=== PATIENT | female | born 1930 | race Caucasian/White ===

== ENCOUNTER 2017-11-08 05:12 | Emergency (ER) | payer MEDICARE, BC ==
[2013-05-19 16:12] VITALS: BMI 30.1
[~2017-11-08 05:12] MED LIST: ASPIRIN 81 MG E81 MG PO; CORDARONE200 MG PO; CRANBERRY PO; ESTRACE1 MG PO; FIBER-TABS625 MG PO; GLUCOSAMINE & C1 CAP PO; VITAMIN D5000 UNIT PO; XARELTO20 MG PO
== END 2017-11-08 06:41 | disposition home or self-care (01) ==
LOC: D.ER 05:12
DX: S49.92XA Unspecified injury of left shoulder and upper arm, initial encounter (principal); W19.XXXA Unspecified fall, initial encounter; Y93.89 Activity, other specified; Y92.121 Bathroom in nursing home as the place of occurrence of the external cause; S89.92XA Unspecified injury of left lower leg, initial encounter; Z86.73 Personal history of transient ischemic attack (TIA), and cerebral infarction without residual deficits

== ENCOUNTER 2018-09-17 09:50 | Emergency (ER) | payer MEDICARE, BC ==
[~2018-09-17] VITALS: Ht 162.6 cm; Wt 100.0 kg
[2018-09-17 09:56] VITALS: Ht 162.6 cm; Wt 100.0 kg
[2018-09-17 10:43] LABS: BASOPHILS 0.1 % (0-2); HEMATOCRIT 43.7 % (36.0-48.0); HEMOGLOBIN 14.7 g/dL (12-16); IMMATURE GRANULOCYTES 0.1 % (0-5); MCH 29.8 pg (26.0-34.0); MCHC 33.6 g/dL (31.0-37.0); MCV 88.6 fL (80.0-100.0); NEUTROPHILS 74.8 % (40-80); PLATELET COUNT 186 10x3/uL (130-400); RBC 4.93 10x6/uL (4.00-5.40); RDW 14.3 % (11.5-14.5); WBC 8.6 10x3/uL (4.8-10.8)
[2018-09-17 10:49] LABS: APTT 38.3 SECONDS (22.8-39.4); INR 2.18 (0.85-1.17); PROTIME 23.6 SECONDS (11.6-15.0)
[2018-09-17 10:55] LABS: ALBUMIN 3.2 g/dL (3.4-5.0); ANION GAP 12.8 mmol/L (8-16); BILIRUBIN - TOTAL 0.47 mg/dL (0.2-1.3); CALCIUM 8.4 mg/dL (8.5-10.1); CARBON DIOXIDE 28.6 mmol/L (21.0-32.0); CREATININE - SERUM 0.8 mg/dL (0.6-1.3); POTASSIUM - SERUM 4.4 mmol/L (3.5-5.1); PROTEIN - SERUM 6.7 g/dL (6.4-8.2)
[2018-09-17 11:44] LABS: APPEARANCE CLEAR (CLEAR); BACTERIA MODERATE /hpf (NONE SEEN); BILIRUBIN NEGATIVE (NEGATIVE); COLOR YELLOW (YELLOW); EPITHELIAL CELLS 0-5 /hpf (0-5); GLUCOSE NEGATIVE (NEGATIVE); KETONE NEGATIVE (NEGATIVE); NITRITE NEGATIVE (NEGATIVE); PROTEIN NEGATIVE (NEGATIVE); RED CELLS - URINE 0-5 /hpf (0-5); UROBILINOGEN NORMAL (NORMAL); WHITE CELLS - URINE OCC /hpf (0-5)
[2018-09-17 11:45] LABS: MUCUS <1+ /lpf (NONE SEEN)
[2018-09-17 12:10] VITALS: BP 159/90
== END 2018-09-17 12:11 ==
LOC: D.LDO 09:50 → D.ER 09:50 → EDSTATUS 11:25 → D.ER 12:11
PROVIDERS: Family Medicine
DX: S89.82XA Other specified injuries of left lower leg, initial encounter (principal); W18.30XA Fall on same level, unspecified, initial encounter; Y93.89 Activity, other specified; Y92.099 Unspecified place in other non-institutional residence as the place of occurrence of the external cause; S00.83XA Contusion of other part of head, initial encounter